=== PATIENT | female | born 1995 ===

== ENCOUNTER 2018-04-12 00:11 | Emergency (ER) | payer SELFPAY ==
[2018-04-12 00:14] VITALS: BMI 19.5
[2018-04-12 00:27] VITALS: O2SAT 100
--- NOTE | 2018-04-12 00:46 | C.PDOC ---
History Of Present Illness 23 year old female presents to the ED c/o painful lump to the left breast. Patient has history of mastitis and has been taking dicloxacillin for the past week. Patient states that general pain of her breast improved, but patient now noticed a swelling to the outer part of the left breast. Patient denies fever, chill, drainage, nipple discharge, skin changes. Time Seen by Provider: 04/12/18 00:41 Chief Complaint (Nursing): Abnormal Skin Integrity History Per: Patient History/Exam Limitations: no limitations Onset/Duration Of Symptoms: Days Current Symptoms Are (Timing): Still Present Location Of Injury: Left: Chest (breast) Quality Of Symptoms: Painful, Swollen Recent travel outside of the [place]: No Additional History Per: Patient Past Medical History Reviewed: Historical Data, Nursing Documentation, Vital Signs Vital Signs: Last Vital Signs Temp 98.6 F 04/12/18 01:19 Pulse 82 04/12/18 01:19 Resp 20 04/12/18 01:19 BP 120/80 04/12/18 01:19 Pulse Ox 100 04/12/18 02:47 - Medical History PMH: No Chronic Diseases Surgical History: No Surg Hx Family History: States: Unknown Family Hx - Social History Hx Tobacco Use: No Hx Alcohol Use: Yes Hx Substance Use: No - Immunization History Hx Tetanus Toxoid Vaccination: No Hx Influenza Vaccination: No Hx Pneumococcal Vaccination: No Review Of Systems Constitutional: Negative for: Fever, Chills Cardiovascular: Positive for: Chest Pain. Negative for: Palpitations Respiratory: Negative for: Cough, Shortness of Breath Gastrointestinal: Negative for: Nausea, Vomiting Skin: Positive for: Other (lump painful) Neurological: Negative for: Weakness, Numbness Physical Exam - Physical Exam Appears: Non-toxic, No Acute Distress Skin: Normal Color, Warm, Dry Head: Atraumatic, Normacephalic Eye(s): bilateral: Normal Inspection Oral Mucosa: Moist Neck: Normal ROM, Supple Chest: Symmetrical, Other (3x2 cm tender fluctuant erythematous mass to left outer quadrant. No skin changes, no nipple inversion, no peau d'orange) Cardiovascular: Rhythm Regular Respiratory: Normal Breath Sounds, No Rales, No Rhonchi, No Wheezing Extremity: Normal ROM, No Tenderness, No Swelling Neurological/Psych: Oriented x3, Normal Speech Gait: Steady ED Course And Treatment O2 Sat by Pulse Oximetry: 100 (ON RA) Pulse Ox Interpretation: Normal Progress Note: Patient was advised to continue taking current antibiotics. Pt educated on proper wound care and advised to follow up in 2 days for wound check. Return precautions were discussed with the patient. - Incision & Drainage Of Abscess Anesthesia: Lidocaine 1% Used During Procedure: Continuous Pulse Oximetry Prep Used: Betadine Procedure: Incised W/Scalpel Blade#:, Drained Pus, Irrigated Cavity W/Saline, Probed To Break Up Loculations, Packed W/Gauze (dressing applied. 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 - Scribe Statement The provider has reviewed the documentation as recorded by the Scribe Trav Lange All medical record entries made by the Scriblazaro were at my direction and personally dictated by me. I have reviewed the chart and agree that the record accurately reflects my personal performance of the history, physical exam, medical decision making, and the department course for this patient. I have also personally directed, reviewed, and agree with the discharge instructions and disposition.
[2018-04-12 01:29] VITALS: BP 120/80; PULSE 82; RESP 20; TEMP 98.6
== END 2018-04-12 01:26 | disposition home or self-care (01) ==
LOC: C.ER 00:11
DX: N61.1 Abscess of the breast and nipple (principal)

== ENCOUNTER 2018-04-13 00:09 | Emergency (ER) | payer SELFPAY ==
[2018-04-13 00:09] VITALS: BMI 19.5
[2018-04-13 00:17] VITALS: BP 115/79; PULSE 85; RESP 18; TEMP 98.2; O2SAT 98
[2018-04-13] MEDS ORDERED: Oxycodone/Acetaminophen 5/325 mg Tab PO STA (00:51)
[2018-04-13] MEDS ORDERED: Oxycodone/Acetaminophen 5/325 mg Tab ONE (00:55)
--- NOTE | 2018-04-13 01:00 | C.PDOC ---
History Of Present Illness 23 y/o female presents to the ED for wound check of left breast abscess. Patient was seen here and had I&D yesterday. She states pain has improved but she still has a lot of discomfort. No fever or chills. Time Seen by Provider: 04/13/18 00:23 Chief Complaint (Nursing): Wound Check History Per: Patient History/Exam Limitations: no limitations Onset/Duration Of Symptoms: Days Ago (1) Current Symptoms Are (Timing): Still Present Location Of Injury: Left: Chest Quality Of Symptoms: Painful, Draining Past Medical History Reviewed: Historical Data, Nursing Documentation, Vital Signs Vital Signs: Last Vital Signs Temp 98.2 F 04/13/18 00:12 Pulse 85 04/13/18 00:12 Resp 18 04/13/18 00:12 BP 115/79 04/13/18 00:12 Pulse Ox 98 04/13/18 03:28 - Medical History PMH: No Chronic Diseases Surgical History: Family History: States: Unknown Family Hx - Social History Hx Tobacco Use: No Hx Alcohol Use: No Hx Substance Use: No - Immunization History Hx Tetanus Toxoid Vaccination: No Hx Influenza Vaccination: No Hx Pneumococcal Vaccination: No Review Of Systems Constitutional: Negative for: Fever, Chills Skin: Positive for: Other (Draining abscess to left breast). Negative for: Rash Neurological: Negative for: Weakness, Numbness Physical Exam - Physical Exam Appears: Non-toxic, No Acute Distress Skin: Warm, Dry Head: Atraumatic, Normacephalic Eye(s): bilateral: Normal Inspection Neck: Normal ROM Chest: Other (Area of erythema induration and fluctuance to the outer aspect of left breast with open packed wound ; Wound actively draining purulent material) Neurological/Psych: Oriented x3, Normal Speech Gait: Steady ED Course And Treatment O2 Sat by Pulse Oximetry: 98 (RA) Pulse Ox Interpretation: Normal Progress Note: Packing removed, moderate amount of material was expressed. Wound cavity irrigated, repacked and dressed. Patient advised to discontinue antibiotics previously prescribed. Pain meds given. Patient will be discharged home on Clindamycin (1st dose initiated) . Instructed to return for wound check in 2 days. Pt undrstands to return immediately if entire breast is swollen, painful, moderate draining / bleeding or if fever Disposition Counseled Patient/Family Regarding: Diagnosis, Need For Followup, Rx Given - Disposition Referrals: Harriett Boss MD [Non-Staff] - Disposition: HOME/ ROUTINE Disposition Time: 00:58 Condition: STABLE Additional Instructions: Please follow up with PMD or in ED in 2 days for wound check Take medications as directed Motrin for pain Return to ER if worse Prescriptions: Clindamycin [Cleocin] 300 mg PO Q6 #20 cap Instructions: Abscess Drainage, Percutaneous (DC) Forms: [employer] (Slovak) - POA Present On Arrival: None - Clinical Impression Clinical Impression: Abscess of breast - 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 - Scribe Statement The provider has reviewed the documentation as recorded by the Scribe (Christiane Andrade) All medical record entries made by the Scribe were at my direction and personally dictated by me. I have reviewed the chart and agree that the record accurately reflects my personal performance of the history, physical exam, medical decision making, and the department course for this patient. I have also personally directed, reviewed, and agree with the discharge instructions and disposition.
== END 2018-04-13 01:13 | disposition home or self-care (01) ==
LOC: C.ER 00:09
DX: N61.1 Abscess of the breast and nipple (principal)